=== PATIENT | female | born 1955 | race Caucasian/White ===

== ENCOUNTER 2022-06-23 15:34 | Emergency (ER) | payer MEDICARE ==
[~2022-06-23] VITALS: Ht 160 cm; Wt 50.4 kg
[2022-06-23] MEDS ORDERED: COMBIVENT RESPIMAT IN (17:40)
[2022-06-23] MEDS ORDERED: DALIRESP500 MCG PO (17:41)
[2022-06-23] MEDS ORDERED: LEVOFLOXACIN500MG PO (17:43)
[2022-06-23] MEDS ORDERED: DIPHENHYDRAM50 M2 PO (17:43)
[2022-06-23] MEDS ORDERED: PEPCID20 MG PO (17:43)
[2022-06-23 17:46] VITALS: BP 146/90
== END 2022-06-23 17:59 | disposition home or self-care (01) ==
LOC: ED 15:34
DX: T78.49XA Other allergy, initial encounter (principal); K21.9 Gastro-esophageal reflux disease without esophagitis; J44.9 Chronic obstructive pulmonary disease, unspecified; J45.50 Severe persistent asthma, uncomplicated; X58.XXXA Exposure to other specified factors, initial encounter

== ENCOUNTER 2023-05-22 05:18 | Emergency (ER) | payer MEDICARE ==
[~2023-05-22] VITALS: Ht 160 cm; Wt 50.0 kg
[~2023-05-22 05:18] MED LIST: COMBIVENT RESPIMAT IN; DALIRESP500 MCG PO; DIPHENHYDRAM50 M2 PO; LEVOFLOXACIN500MG PO; PEPCID20 MG PO
[2023-05-22] MEDS ORDERED: [UNRECOGNIZED DRUG - OTHER] (05:54)
[2023-05-22] MEDS ORDERED: IPRATROPIUM BR0.02 % (05:57)
[2023-05-22] MEDS ORDERED: COMBIVENT RESPIMAT IN (05:57)
[2023-05-22] MEDS ORDERED: LEVALBUTER1.25 MG/3 (05:58)
[2023-05-22] MEDS ORDERED: DALIRESP500 MCG PO (05:59)
[2023-05-22] MEDS ORDERED: DEXILANT60 MG PO (06:00)
[2023-05-22] MEDS ORDERED: SINGULAIR10 MG PO (06:00)
[2023-05-22] MEDS ORDERED: CARAFATE PO (06:01)
[2023-05-22] MEDS ORDERED: PEPCID40 MG PO (06:02)
[2023-05-22] MEDS ORDERED: PREDNISONE10 MG PO (06:02)
[2023-05-22 06:25] LABS: BASO% 0.1 % (0-3); EOS% 1.1 % (0-8); HEMATOCRIT 42.2 % (37.0-47.0); HEMOGLOBIN 13.6 g/dl (12.0-16.0); IMMATURE GRANULOCYTES 0.2 % (0.0-5.0); LYMPH% 5.4 % (15-41); MEAN CELL VOLUME 86.5 fL CALC (80.0-100.0); MEAN CORPUSCULAR HGB 27.9 pG CALC (26.0-32.0); MEAN CORPUSCULAR HGB CONC 32.2 g/dL CAL (32.0-36.0); MONO% 4.9 % (2-13); NEUT# 23.85 thou/uL (2.00-7.15); NEUT% 88.3 % (42-76); RED BLOOD COUNT 4.88 mill/uL (4.20-5.60); RED CELL DISTRI WIDTH 13.9 % (11.5-15.5)
[2023-05-22 06:36] LABS: ALBUMIN 4.6 g/dL (3.2-5.0); ALKALINE PHOSPHATASE 99 u/l (38-126); AMYLASE 136 u/l (30-110); BILIRUBIN, TOTAL 0.9 mg/dL (0.02-1.3); BUN 13 mg/dL (8-23); BUN/CREATININE RATIO 15 (12-20 (CALC)); CARBON DIOXIDE 21 mmol/l (22-30); CHLORIDE 110 mmol/l (95-108); CREATININE 0.8 mg/dL (0.5-1.0); GFR FOR AFR.AMER. > 60 ML/MIN (>=60 (CALC)); GFR OTHER RACES > 60 ML/MIN (>=60 (CALC)); LIPASE 196 u/l (23-300); SGOT/AST 24 u/l (9-36); SODIUM 143 mmol/l (137-146); TOTAL PROTEIN 7.6 g/dL (6.3-8.2)
[2023-05-22 06:37] LABS: ANION GAP 15 (6-22 (CALC)); POTASSIUM 3.2 mmol/l (3.5-5.1)
[2023-05-22] MEDS ORDERED: ZOFRAN4 MG/TAB PO (08:56)
[2023-05-22 09:18] VITALS: BP 123/85
== END 2023-05-22 09:33 | disposition home or self-care (01) ==
LOC: ED 05:18 → ED-I 08:15 → ED 09:33
PROVIDERS: Emergency Medicine
DX: R11.2 Nausea with vomiting, unspecified (principal); R19.7 Diarrhea, unspecified; R10.9 Unspecified abdominal pain; E86.0 Dehydration; J44.9 Chronic obstructive pulmonary disease, unspecified; Z99.81 Dependence on supplemental oxygen; Z20.822 Contact with and (suspected) exposure to COVID-19
CPT/HCPCS: J1956; Q9967; S0164